=== PATIENT | female | born 1985 | race African-American/Black ===

== ENCOUNTER 2016-12-31 00:16 | Emergency (ER) | payer SELFPAY ==
[~2016-12-31] VITALS: Ht 167.6 cm; Wt 66.0 kg
[~2016-12-31 00:16] MED LIST: HYDR-523 PO
[2016-12-31] MEDS ORDERED: ACETAMINOPHEN 500MG TABLET PO ONE (01:00)
[2016-12-31] MEDS ORDERED: IBUPROFEN 600MG TABLET PO ONE (01:00)
[2016-12-31] MEDS ORDERED: TETANUS, DIPHTHERIA, PERTUSSIS VAC/PF 0.5ML (>7YR OLD) IM ONE (01:15)
[2016-12-31] MEDS ORDERED: LIDOCAINE HCL 1% 20ML VIAL (Pyxis) INJ MC ONE (01:15)
[2016-12-31] MEDS ORDERED: CLINDAMYCIN HCL 150MG CAPSULE PO ONE (01:30)
[2016-12-31] MEDS ORDERED: MORPHINE SULFATE 10 MG/ML CPJ IM ONE (01:45)
[2016-12-31] MEDS ORDERED: ONDANSETRON 4MG ODT PO ONE (02:45)
[2016-12-31 05:20] VITALS: BP 120/64
== END 2016-12-31 07:15 | disposition home or self-care (01) ==
LOC: ER 00:16
DX: K04.7 Periapical abscess without sinus (principal); R22.0 Localized swelling, mass and lump, head; R51 Headache; Z23 Encounter for immunization; Z85.41 Personal history of malignant neoplasm of cervix uteri
CPT/HCPCS: 41800; 81025; 96372; 99284; J2270; J3490; Q0162; Z7610

== ENCOUNTER 2017-05-07 22:36 | Emergency (ER) | payer MEDICAID ==
[~2017-05-07] VITALS: Ht 167.6 cm; Wt 77.0 kg
[2017-05-07] MEDS ORDERED: TETANUS, DIPHTHERIA, PERTUSSIS VAC/PF 0.5ML (>7YR OLD) IM ONE (23:15)
[2017-05-07] MEDS ORDERED: IBUPROFEN 600MG TABLET PO ONE (23:15)
[2017-05-08] MEDS ORDERED: HYDROCODONE/ACETAMINOPHEN 5/325MG TABLET PO ONE (01:45)
[2017-05-08 01:49] VITALS: BP 119/82
== END 2017-05-08 02:52 | disposition home or self-care (01) ==
LOC: ER 22:45
DX: S02.2XXA Fracture of nasal bones, initial encounter for closed fracture (principal); S01.81XA Laceration without foreign body of other part of head, initial encounter; J34.2 Deviated nasal septum; Z23 Encounter for immunization; Y04.2XXA Assault by strike against or bumped into by another person, initial encounter; Y93.89 Activity, other specified; Y92.098 Other place in other non-institutional residence as the place of occurrence of the external cause; M54.2 Cervicalgia; Y07.03 Male partner, perpetrator of maltreatment and neglect; Z90.710 Acquired absence of both cervix and uterus; S06.891A Other specified intracranial injury with loss of consciousness of 30 minutes or less, initial encounter
CPT/HCPCS: 70450; 70486; 90471; 90715; 99284; Z7610